=== PATIENT | female | born 1965 ===

== ENCOUNTER 2023-07-08 05:19 | Day surgery (SDC) | payer OTHER ==
[~2023-07-08 05:19] MED LIST: COZAAR100 MG PO
== END 2023-07-08 11:55 | disposition home or self-care (01) ==
LOC: CIR.AMB 05:19
PROVIDERS: ATTEND Surgery Surgery of the Hand
DX: D21.11 Benign neoplasm of connective and other soft tissue of right upper limb, including shoulder (principal); Z42.8 Encounter for other plastic and reconstructive surgery following medical procedure or healed injury; Z20.822 Contact with and (suspected) exposure to COVID-19